=== PATIENT | female | born 1935 | race Caucasian/White ===

== ENCOUNTER 2016-04-12 12:19 | Observation (INO) | payer OTHER, MEDICARE ==
--- NOTE | 2016-04-12 12:19 | EDPHY ---
H & P Time Seen by Provider: 04/12/16 12:18 HPI/ROS: CHIEF COMPLAINT: Confusion HISTORY OF PRESENT ILLNESS: Patient arrives by EMS. She was at [employer] when at 11:00 a.m. she had sudden onset of confusion. She felt she did not know where she was and she could not remember where she parked her car. Didn't know why she was at the grocery store. She denies headache. Denies weakness or numbness in extremities. No symptoms of visual loss or difficulty with speech. She feels better now but is not completely back to normal. REVIEW OF SYSTEMS: Eye: no change in vision ENT: no sore throat Cardiac: no chest pain or syncope Pulmonary: no cough or SOB Abdomen: no vomiting, diarrhea, abdominal pain Musculoskeletal: no back pain or neck pain Skin: no rash Neuro: no headache Constitutional: no fever : no urinary symptoms, no dysuria or hematuria. A comprehensive 10 point review of systems is otherwise negative aside from elements mentioned in the history of present illness. PAST MEDICAL HISTORY: Includes GERD, hyperlipidemia, history of basal cell skin cancer, hypothyroid, tonsillectomy. Social history: No alcohol or tobacco. General Appearance: Alert and conversant, cooperative. Eyes: No scleral icterus. ENT, Mouth: Normal mucous membranes. Respiratory: Normal respiratory effort, breath sounds equal, lungs are clear to auscultation. Cardiovascular: Regular rate and rhythm. Gastrointestinal: Abdomen is soft and non tender. Neurological: Alert and oriented x3. Normally conversant. Face symmetric, normal movement and sensation in all extremities. Extraocular motion intact. Visual adan intact to confrontation. Good sales consultant insurance strength bilaterally and can lift each leg independently off the bed. She remembers that she went to [employer] and had a cup of coffee and a sweet roll, she remembers she has a Toyota Previa in the color "sea foam" but still cannot remember where she parked it. She knows her age in the fact that it is April and it is 2017 and today is . Skin: Warm and dry, no rashes. Musculoskeletal: No peripheral edema and no joint swelling. No meningeal signs, neck not stiff. Psychiatric: Not agitated. Emergency Department course/MDM: On arrival she has a history of confusion which seems to be resolving and I do not think she meets criteria acutely for a stroke alert. In addition her symptoms are improving rapidly. Plan for labs to include Chem 7 and troponin, EKG and noncontrast head CT with angiography. 1355: Patient re-examined. She still is not feel back to normal. She has fluent speech. Case is discussed with Dr. Rojas from Neurology who recommends no acute intervention including the no Activase, admission for further observation and probable MRI imaging Discussed with Dr. Nguyen 1430, send urine culture, no antibiotics without any urinary symptoms. We agreed it would be unusual for a urinary tract infection to cause sudden onset of confusion even in this demographic group. Possible TIA, medication side effect, global amnesia. Constitutional: Initial Vital Signs Temperature (C) 36.5 C 04/12/16 12:29 Heart Rate 62 04/12/16 12:29 Respiratory Rate 16 04/12/16 12:29 Blood Pressure 141/64 H 04/12/16 12:29 O2 Sat (%) 97 04/12/16 12:29 O2 Delivery Mode Room Air Allergies/Adverse Reactions: erythromycin base [Erythromycin Base] Allergy (Verified 04/12/16 12:35) flourocene Allergy (Uncoded 04/12/16 12:35) Home Medications: Medication Instructions Recorded Cholecalciferol Vit D3 [Vitamin D3 5,000 units PO HS 06/03/13 (OTC)] Cyanocobalamin [Vitamin B12 (*)] 100 mcg PO DAILY 06/03/13 Estradiol 0.5 mg PO HS 06/03/13 Levothyroxine [Synthroid 50 mcg 50 mcg PO DAILY 06/03/13 (*)] Magnesium Oxide 250 mg PO HS 06/03/13 Progesterone,Micronized 100 mg PO HS 06/03/13 [Prometrium] Simvastatin [Zocor 10 mg] 10 mg PO DAILY@2300 06/03/13 Vit A/Vit C/Vit E/Zinc/Copper 1 each PO BID 06/03/13 [Preservision Areds Softgel] valACYclovir [Valtrex (*)] 500 mg PO HS 06/03/13 Cetirizine [ZyrTEC 10 mg (*)] 10 mg PO DAILY 04/12/16 Ranitidine HCl [Zantac] 150 mg PO HS 04/12/16 diphenhydrAMINE [Benadryl 50 MG 50 mg PO HS 04/12/16 (*)] Medical Decision Making - Diagnostics EKG Interpretation: 12-lead EKG interpreted by me; official reading is in trace master. My interpretation is sinus rhythm at rate 65 with left atrial abnormality otherwise normal. Imaging: Negative CT head and angiography including neck vessels per Isever at 2:00 p.m.. Differential Diagnosis: Differential for confusion includes but not limited to intracranial bleed, ischemic stroke, seizure, metabolic or hypoglycemia, transient global amnesia Consult/Admit Bed Type: [place] [id number] - Data Points Laboratory Results: Laboratory Results 04/12/16 12:35 04/12/16 12:35 04/12/16 04/12/16 04/12/16 13:35 12:35 12:35 WBC RBC Hgb POC Hgb Hct POC Hct MCV MCH MCHC RDW Plt Count MPV Neut % (Auto) Lymph % (Auto) [place] % (Auto) Eos % (Auto) Baso % (Auto) Nucleat RBC Rel Count Absolute Neuts (auto) Absolute Lymphs (auto) Absolute Monos (auto) Absolute Eos (auto) Absolute Basos (auto) Absolute Nucleated RBC Immature Gran % Immature Gran # PT 12.5 SEC SEC (12.0-15.0) INR 0.94 (0.83-1.16) POC Sodium Sodium 142 mEq/L mEq/L (134-144) POC Potassium Potassium 4.5 mEq/L mEq/L (3.5-5.2) POC Chloride Chloride 109 mEq/L mEq/L (97-110) Carbon Dioxide 24 mEq/l mEq/l (22-31) Anion Gap 9 mEq/L mEq/L (8-16) POC BUN BUN 26 mg/dL H mg/dL (7-23) Creatinine 1.0 mg/dL mg/dL (0.6-1.0) POC Creatinine Estimated GFR 53 Glucose 98 mg/dL mg/dL (70-100) POC Glucose Calcium 9.3 mg/dL mg/dL (8.5-10.4) Troponin I < 0.012 ng/mL ng/mL (0-0.034) Urine Color PALE YELLOW Urine Appearance CLEAR Urine pH 6.0 (5.0-7.5) Ur Specific [place] 1.005 (1.002-1.030) Urine Protein NEGATIVE (NEGATIVE) Urine Ketones NEGATIVE (NEGATIVE) Urine Blood NEGATIVE (NEGATIVE) Urine Nitrate NEGATIVE (NEGATIVE) Urine Bilirubin NEGATIVE (NEGATIVE) Urine Urobilinogen NEGATIVE EU EU (0.2-1.0) Ur Leukocyte Esterase TRACE H (NEGATIVE) Urine RBC 1-3 /hpf /hpf (0-3) Urine WBC 5-10 /hpf H /hpf (0-3) Ur Epithelial Cells NONE SEEN /lpf /lpf (NONE-1+) Urine Bacteria 1+ /hpf H /hpf (NONE SEEN) Urine Glucose NEGATIVE (NEGATIVE) 04/12/16 04/12/16 12:35 12:34 WBC 6.86 10^3/uL 10^3/uL (3.80-9.50) RBC 3.94 10^6/uL L 10^6/uL (4.18-5.33) Hgb 13.2 g/dL g/dL (12.6-16.3) POC Hgb 13.6 gm/dL gm/dL (12.3-15.9) Hct 39.0 % % (38.0-47.0) POC Hct 40 % % (35.5-47.5) MCV 99.0 fL fL (81.5-99.8) MCH 33.5 pg pg (27.9-34.1) MCHC 33.8 g/dL g/dL (32.4-36.7) RDW 13.2 % % (11.5-15.2) Plt Count 275 10^3/uL 10^3/uL (150-400) MPV 9.4 fL fL (8.7-11.7) Neut % (Auto) 58.9 % % (39.3-74.2) Lymph % (Auto) 23.2 % % (15.0-45.0) [place] % (Auto) 12.2 % % (4.5-13.0) Eos % (Auto) 4.7 % % (0.6-7.6) Baso % (Auto) 0.7 % % (0.3-1.7) Nucleat RBC Rel Count 0.0 % % (0.0-0.2) Absolute Neuts (auto) 4.04 10^3/uL 10^3/uL (1.70-6.50) Absolute Lymphs (auto) 1.59 10^3/uL 10^3/uL (1.00-3.00) Absolute Monos (auto) 0.84 10^3/uL H 10^3/uL (0.30-0.80) Absolute Eos (auto) 0.32 10^3/uL 10^3/uL (0.03-0.40) Absolute Basos (auto) 0.05 10^3/uL 10^3/uL (0.02-0.10) Absolute Nucleated RBC 0.00 10^3/uL 10^3/uL (0-0.01) Immature Gran % 0.3 % % (0.0-1.1) Immature Gran # 0.02 10^3/uL 10^3/uL (0.00-0.10) PT INR POC Sodium 144 mEq/L mEq/L (134-144) Sodium POC Potassium 4.1 mEq/L mEq/L (3.3-5.0) Potassium POC Chloride 107 mEq/L mEq/L (96-108) Chloride Carbon Dioxide Anion Gap POC BUN 27 mg/dL H mg/dL (7-23) BUN Creatinine POC Creatinine 1.1 mg/dL mg/dL (0.6-1.2) Estimated GFR Glucose POC Glucose 105 mg/dL H mg/dL (70-100) Calcium Troponin I Urine Color Urine Appearance Urine pH Ur Specific [place] Urine Protein Urine Ketones Urine Blood Urine Nitrate Urine Bilirubin Urine Urobilinogen Ur Leukocyte Esterase Urine RBC Urine WBC Ur Epithelial Cells Urine Bacteria Urine Glucose Medications Given: Discontinued Medications Aspirin (Aspirin) 325 mg PO ONCE ONE Stop: 04/12/16 14:56 Last Admin: 04/12/16 15:08 Dose: 325 mg Nitrofurantoin Macrocrystals (Macrobid) 100 mg PO EDNOW ONE PRN Reason: Protocol Stop: 04/12/16 14:18 Last Admin: 04/12/16 14:28 Dose: 100 mg Point of Care Test Results: 04/12/16 12:34 POC Sodium 144 POC Potassium 4.1 POC Chloride 107 POC BUN 27 H POC Creatinine 1.1 POC Glucose 105 H Departure - Dep[facility]ure [facility] [place] [facility] Clinical Impression: Confusion Condition: Good
--- NOTE | 2016-04-12 12:42 | CPEKG ---
Heart Rate: 65 RR Interval: 923 P-R Interval: 152 QRSD Interval: 86 QT Interval: 420 QTC Interval: 437 P [place]: 79 QRS [place]: 78 T Wave [place]: 66 EKG Severity - BORDERLINE ECG - EKG Impression: SINUS RHYTHM EKG Impression: PROBABLE LEFT ATRIAL ABNORMALITY Electronically Signed By: Julian Borrero 12-Apr-2016 12:43:12
[2016-04-12 12:47] LABS: % IMMATURE GRANULYOCYTES 0.3 % (0.0-1.1); ABSOLUTE IMMATURE GRANULOCYTES 0.02 10^3/uL (0.00-0.10); ADD DIFF? NO; ADD MORPH? NO; ADD SCAN? NO; ATYPICAL LYMPHOCYTE FLAG 30 (0-99); FRAGMENT RBC FLAG 0 (0-99); HEMOGLOBIN 13.2 g/dL (12.6-16.3); LEFT SHIFT FLG 0 (0-99); LIPEMIA HEMOLYSIS FLAG 90 (0-99); MEAN CELL HEMOGLOBIN 33.5 pg (27.9-34.1); MEAN CELL HEMOGLOBIN CONCENTR. 33.8 g/dL (32.4-36.7); MEAN PLATELET VOLUME 9.4 fL (8.7-11.7); PLATELET CLUMPS FLAG 0 (0-99); PLATELET COUNT 275 10^3/uL (150-400); RED BLOOD CELL COUNT 3.94 10^6/uL (4.18-5.33); RED CELL DISTRIBUTION WIDTH 13.2 % (11.5-15.2)
[2016-04-12 12:55] LABS: INR 0.94 (0.83-1.16); PROTIME(PATIENT) 12.5 SEC (12.0-15.0)
[2016-04-12] MEDS ORDERED: IOPAMIDOL (ISOVUE-370) 150 ML BTL IV ONE (13:03)
[2016-04-12 13:07] LABS: ANION GAP 9 mEq/L (8-16); CALCIUM 9.3 mg/dL (8.5-10.4); CARBON DIOXIDE 24 mEq/l (22-31); CHLORIDE 109 mEq/L (97-110); GLOMERULAR FILTRATION RATE 53; GLUCOSE 98 mg/dL (70-100); POTASSIUM 4.5 mEq/L (3.5-5.2); SODIUM 142 mEq/L (134-144)
[2016-04-12 13:18] LABS: TROPONIN I < 0.012 ng/mL (0-0.034)
[2016-04-12 13:57] LABS: COLOR PALE YELLOW; LEUKOCYTE ESTERASE,URINE TRACE (NEGATIVE); NITRITE,URINE NEGATIVE (NEGATIVE)
[2016-04-12 14:01] LABS: BACTERIA 1+ /hpf (NONE SEEN)
[2016-04-12] MEDS ORDERED: NITROFURANTOIN MACROBID 100 MG CAP PO ONE ×2 (14:17→14:24)
[2016-04-12] MEDS ORDERED: ASPIRIN 325 MG TAB PO ONE (14:55)
[2016-04-12] MEDS ORDERED: NS 1,000 ML IV SCH (15:00)
--- NOTE | 2016-04-12 15:04 | PDEACUHP ---
History and Physical - Chief Complaint confusion - History of Present Illness 81 yo female with h/o macular degeneration, hypothyroidism and hyperlipidemia presented to ED via EMS after becoming acutely confused at [employer]. She recalls the events from yesterday and recent meetings and events at home. This morning, she went to her Pilates class, but felt rather tired so she went to [employer] for some coffee and a sweet bun. While there, she suddenly felt the layout of the store was confusing, she couldn't remember where she parked her car, and felt generally confused. EMS was called and she was brought to the ED. She denies speech difficulty, headaches, vision changes, CP, SOB or heart palpitations. No focal weakness. No h/o TIA or CVA. No h/o A fib. Denies dysuria, frequency, urgency, no fevers. She was recently started on Zyrtec and Benadryl for a pruritic rash on her b/l LE's. She takes 50 mg of Benadryl at bedtime for the past 5-7 days and 10 mg Zyrtec in the morning. She has been putting Aquafor on her legs, without much improvement. In the ED, a CT brain and CTA head and neck were negative for acute stroke. She is admitted for further evaluation of her acute confusional state. History Information - Allergies/Home Medication List Allergies/Adverse Reactions: erythromycin base [Erythromycin Base] Allergy (Verified 04/12/16 12:35) flourocene Allergy (Uncoded 04/12/16 12:35) Home Medications: Cholecalciferol Vit D3 [Vitamin D3 (OTC)] 5,000 units PO HS 06/03/13 [Last Taken 06/02/13] Cyanocobalamin [Vitamin B12 (*)] 100 mcg PO DAILY 06/03/13 [Last Taken 06/03/13] Estradiol 0.5 mg PO HS 06/03/13 [Last Taken 06/02/13 23:00] Levothyroxine [Synthroid 50 mcg (*)] 50 mcg PO DAILY 06/03/13 [Last Taken 08:00] Magnesium Oxide 250 mg PO HS 06/03/13 [Last Taken 06/02/13 23:00] Progesterone,Micronized [Prometrium] 100 mg PO HS 06/03/13 [Last Taken 06/02/13 23:00] Simvastatin [Zocor 10 mg] 10 mg PO DAILY@2300 06/03/13 [Last Taken 06/02/13 23: 00] Vit A/Vit C/Vit E/Zinc/Copper [Preservision Areds Softgel] 1 each PO BID [Last Taken 06/02/13] valACYclovir [Valtrex (*)] 500 mg PO HS 06/03/13 [Last Taken 06/02/13 23:00] Cetirizine [ZyrTEC 10 mg (*)] 10 mg PO DAILY 04/12/16 [Last Taken 04/11/16] Ranitidine HCl [Zantac] 150 mg PO HS 04/12/16 [Last Taken 04/11/16] diphenhydrAMINE [Benadryl 50 MG (*)] 50 mg PO HS 04/12/16 [Last Taken 04/11/16] I have personally reviewed and updated: family history, medical history, social history, surgical history - Past Medical History hyperlipidemia Additional medical history: hypothyroid, h/o esophageal stricture, h/o hsv, macular degeneration - Surgical History Additional surgical history: EGD for esophageal dilation ?2013 - Family History Positive for: stroke Additional family history: parents both of heart disease, sister had a stroke - Social History Smoking Status: Never smoked Alcohol Use: Other (one drink each day, [place] when it's cold, [place] when it's warm. Retired attorney law clerk. Lives alone) Drug Use: None Additional social history: She is very active, going to exercise classes regularly Review of Systems ROS: 10pt was reviewed & negative except for what was stated in HPI & below Physical Exam Temp Pulse Resp BP Pulse Ox 36.5 C 58 L 17 119/57 L 96 04/12/16 12:29 04/12/16 13:56 04/12/16 13:56 04/12/16 13:56 04/12/16 13:56 Constitutional: no apparent distress Eyes: PERRL Ears, Nose, Mouth, Throat: moist mucous membranes Cardiovascular: regular rate and rhythym, no murmur, rub, or gallop Respiratory: no respiratory distress, clear to auscultation Gastrointestinal: normoactive bowel sounds, soft, non-tender abdomen Skin: warm Musculoskeletal: full muscle strength Neurologic: AAOx3, CN II-XII Intact (negative pronator drift. she is a bit slow to find her words) Lab Data & Imaging Review 04/12/16 12:35 04/12/16 12:35 WBC 6.86 10^3/uL (3.80-9.50) 04/12/16 12:35 RBC 3.94 10^6/uL (4.18-5.33) L 04/12/16 12:35 Hgb 13.2 g/dL (12.6-16.3) 04/12/16 12:35 POC Hgb 13.6 gm/dL (12.3-15.9) 04/12/16 12:34 Hct 39.0 % (38.0-47.0) 04/12/16 12:35 POC Hct 40 % (35.5-47.5) 04/12/16 12:34 MCV 99.0 fL (81.5-99.8) 04/12/16 12:35 MCH 33.5 pg (27.9-34.1) 04/12/16 12:35 MCHC 33.8 g/dL (32.4-36.7) 04/12/16 12:35 RDW 13.2 % (11.5-15.2) 04/12/16 12:35 Plt Count 275 10^3/uL (150-400) 04/12/16 12:35 MPV 9.4 fL (8.7-11.7) 04/12/16 12:35 Neut % (Auto) 58.9 % (39.3-74.2) 04/12/16 12:35 Lymph % (Auto) 23.2 % (15.0-45.0) 04/12/16 12:35 [place] % (Auto) 12.2 % (4.5-13.0) 04/12/16 12:35 Eos % (Auto) 4.7 % (0.6-7.6) 04/12/16 12:35 Baso % (Auto) 0.7 % (0.3-1.7) 04/12/16 12:35 Nucleat RBC Rel Count 0.0 % (0.0-0.2) 04/12/16 12:35 Absolute Neuts (auto) 4.04 10^3/uL (1.70-6.50) 04/12/16 12:35 Absolute Lymphs (auto) 1.59 10^3/uL (1.00-3.00) 04/12/16 12:35 Absolute Monos (auto) 0.84 10^3/uL (0.30-0.80) H 04/12/16 12:35 Absolute Eos (auto) 0.32 10^3/uL (0.03-0.40) 04/12/16 12:35 Absolute Basos (auto) 0.05 10^3/uL (0.02-0.10) 04/12/16 12:35 Absolute Nucleated RBC 0.00 10^3/uL (0-0.01) 04/12/16 12:35 Immature Gran % 0.3 % (0.0-1.1) 04/12/16 12:35 Immature Gran # 0.02 10^3/uL (0.00-0.10) 04/12/16 12:35 PT 12.5 SEC (12.0-15.0) 04/12/16 12:35 INR 0.94 (0.83-1.16) 04/12/16 12:35 POC Sodium 144 mEq/L (134-144) 04/12/16 12:34 Sodium 142 mEq/L (134-144) 04/12/16 12:35 POC Potassium 4.1 mEq/L (3.3-5.0) 04/12/16 12:34 Potassium 4.5 mEq/L (3.5-5.2) 04/12/16 12:35 POC Chloride 107 mEq/L (96-108) 04/12/16 12:34 Chloride 109 mEq/L (97-110) 04/12/16 12:35 Carbon Dioxide 24 mEq/l (22-31) 04/12/16 12:35 Anion Gap 9 mEq/L (8-16) 04/12/16 12:35 POC BUN 27 mg/dL (7-23) H 04/12/16 12:34 BUN 26 mg/dL (7-23) H 04/12/16 12:35 Creatinine 1.0 mg/dL (0.6-1.0) 04/12/16 12:35 POC Creatinine 1.1 mg/dL (0.6-1.2) 04/12/16 12:34 Estimated GFR 53 04/12/16 12:35 Glucose 98 mg/dL (70-100) 04/12/16 12:35 POC Glucose 105 mg/dL (70-100) H 04/12/16 12:34 Calcium 9.3 mg/dL (8.5-10.4) 04/12/16 12:35 Troponin I < 0.012 ng/mL (0-0.034) 04/12/16 12:35 Urine Color PALE YELLOW 04/12/16 13:35 Urine Appearance CLEAR 04/12/16 13:35 Urine pH 6.0 (5.0-7.5) 04/12/16 13:35 Ur Specific [place] 1.005 (1.002-1.030) 04/12/16 13:35 Urine Protein NEGATIVE (NEGATIVE) 04/12/16 13:35 Urine Ketones NEGATIVE (NEGATIVE) 04/12/16 13:35 Urine Blood NEGATIVE (NEGATIVE) 04/12/16 13:35 Urine Nitrate NEGATIVE (NEGATIVE) 04/12/16 13:35 Urine Bilirubin NEGATIVE (NEGATIVE) 04/12/16 13:35 Urine Urobilinogen NEGATIVE EU (0.2-1.0) 04/12/16 13:35 Ur Leukocyte Esterase TRACE (NEGATIVE) H 04/12/16 13:35 Urine RBC 1-3 /hpf (0-3) 04/12/16 13:35 Urine WBC 5-10 /hpf (0-3) H 04/12/16 13:35 Ur Epithelial Cells NONE SEEN /lpf (NONE-1+) 04/12/16 13:35 Urine Bacteria 1+ /hpf (NONE SEEN) H 04/12/16 13:35 Urine Glucose NEGATIVE (NEGATIVE) 04/12/16 13:35 Assessment & Plan Assessment: Confusion (Acute) - Differential includes TIA vs transient global amnesia vs medication side effect (it's possible the benadryl and zyrtec are playing a role in her fatigue and confusion). CT neg. Stroke risk factors include hyperlipidemia. BP is normal. -monitor on tele -MRI ordered -Start ASA -check lipid panel -neurology consult -hold anti-histamines -PT/OT evals LE dermatitis - Possibly allergic. Will hold the anti-histamines due to above issue and give topical steroid cream. Possible UTI - UA is not terribly impressive and she has no urinary symptoms. Cx sent in ED and pt given Macrobid. Will defer atbx for now, await Cx. Macular degeneration - cont outpt meds. Pt has an appt with her eye doctor tomorrow afternoon and wants to be sure this gets canceled if necessary. Hypothyroidism - check TSH given confusion. If normal, cont outpt meds. Hyperlipidemia - med rec pending. Check lipid panel in am. Full code Dispo - obs/EACU
[2016-04-12] MEDS ORDERED: PROGESTERONE,MICR 100 MG CAP PO SCH (21:00)
[2016-04-12] MEDS ORDERED: ESTRADIOL 0.5 MG TAB PO SCH (21:00)
[2016-04-12] MEDS ORDERED: valACYclovir 500 MG TAB PO SCH (21:00)
[2016-04-12] MEDS ORDERED: FAMOTIDINE 20 MG TAB PO SCH (21:00)
[2016-04-12] MEDS: TRIAMCINOLONE 0.1% 15 GM CRTUBE TP SCH ×2 (21:51)
[2016-04-12] MEDS ORDERED: PRAVASTATIN SODIUM 20 MG TAB PO SCH (23:00)
[2016-04-13 05:36] VITALS: RESP 16
[2016-04-13 05:43] LABS: ANION GAP 8 mEq/L (8-16); CALCIUM 9.1 mg/dL (8.5-10.4); CARBON DIOXIDE 22 mEq/l (22-31); CHLORIDE 115 mEq/L (97-110); CHOLESTEROL 162 mg/dL (140-220); CHOLESTEROL/HDL RATIO 2.89 RATIO (1.00-4.44); CREATININE 0.9 mg/dL (0.6-1.0); GLOMERULAR FILTRATION RATE 60; GLUCOSE 85 mg/dL (70-100); HIGH DENSITY LIPOPROTEIN 56 mg/dL (40-85); LDL/HDL RATIO 1.59 RATIO (1.00-3.22); LOW DENSITY LIPOPROTEIN 89 mg/dL (80-100); NON-HIGH DENSITY LIPOPROTEIN 106 mg/dL (90-129); POTASSIUM 4.3 mEq/L (3.5-5.2); SODIUM 145 mEq/L (134-144); TRIGLYCERIDE 87 mg/dL (35-135); VERY LOW DENSITY LIPOPROTEINS 17 mg/dL (8-25)
[2016-04-13] MEDS ORDERED: LEVOTHYROXINE 50 MCG TAB PO SCH (06:00)
[2016-04-13] MEDS ORDERED: ASPIRIN 81 MG CHEWABLE TAB PO SCH (09:00)
[2016-04-13] MEDS: TRIAMCINOLONE 0.1% 15 GM CRTUBE TP SCH (09:30)
[2016-04-13 15:25] VITALS: BP 126/57; PULSE 69; TEMP 98.8; O2SAT 96
--- NOTE | 2016-04-13 15:42 | GCON ---
INPATIENT CONSULTATION NOTE. DATE OF CONSULTATION: 04/13/2016 CHIEF COMPLAINT: Transient global amnesia. HISTORY OF PRESENT ILLNESS: Dr. Macarena Miranda of the hospitalist service consulted Neurology for oanh luation of the patient's mental status changes. Results of the evaluation are placed in the EMR for her review. This is an 81-year-old female with a prior history of macular degeneration, hypothyroidism, and hype rlipidemia, who presented to the emergency room on April 12, 2016, with transient confusion. She rep orts she was in her normal state of good health in the morning when she went to [employer]. She st ates that is the last thing she can remember until 2 hours later, when she became cognizant and coul d remember things in the hospital admission. Bystanders in the emergency room notes report that she was acting confused and could not maintain short-term memories. There were no focal neurologic def icits noted. She was admitted, where a CT angiogram of the head and neck and a brain MRI were all g enerally unremarkable. CT angiogram did show some bilateral carotid fibromuscular dysplasia. The p atient states since yesterday late afternoon, her memory has been fine and she has full memory from yesterday afternoon until this morning. She completely feels normal. She cannot remember 2 hours f rom yesterday, however. She states this has never happened before, and she denies any prior history of stroke or seizure. ALLERGIES: No known drug allergies. PAST MEDICAL HISTORY: Hyperlipidemia, hypothyroidism, history of esophageal stricture, history of a ge-related macular degeneration, EGD for esophageal dilation in 2013. FAMILY HISTORY: Stroke. SOCIAL HISTORY: Never smoked. REVIEW OF SYSTEMS: A 10-point review of systems is negative except for what was placed in HPI. PHYSICAL EXAM: VITAL SIGNS: Blood pressure is 107/54, heart rate 57, respirations 16, satting 94% on room air, temperature 36.4 degrees Celsius. GENERAL: No acute distress. EYES: Funduscopic exa m could not visualize optic discs. LUNGS: Clear to auscultation bilaterally. No rhonchi or rales. HEART: Regular rate and rhythm. No murmurs. No carotid bruits auscultated. NEUROLOGIC: Mental status: Alert and oriented to person, place, and date. Memory, attention, language, and fund of k nowledge all appear intact. Cranial nerves: Pupils equal, round, and react to light. Visual field s are full to confrontation. Extraocular muscles intact. Bilateral face intact to sensation and mo tor movement. Hearing intact to conversation. Uvula rises symmetrically. Tongue protrudes midline . Traps 5/5 strength. Motor: Normal tone and strength in all 4 extremities. Sensory: All 4 extr emities intact to light touch. No neglect. Reflexes: Bilateral brachioradialis and patellae 2/4. Coordination: Bilateral [id number], [id number], and rapid alternating movements are normal. Gait deferred. LABS: On April 12, 2016, CBC is normal. CMP with a sodium of 145. TSH within normal limits. LDL 8 9. UA shows trace leukocyte esterase. IMAGING: On April 12, 2016, a brain MRI without contrast shows no acute findings. I personally visu alized this study. On April 12, 2016, a CT angiogram of the head and neck shows bilateral carotid artery fibromuscular d ysplasia, but otherwise it is unremarkable. ASSESSMENT: 1. Transient global amnesia: Given the patient had 2 hours of inability to form short-term memorie s with no focal neurologic deficits and has had complete recovered with a normal brain MRI makes me suspect this is the correct diagnosis. The fact that she cannot remember 2 hours yesterday strongly supports this diagnosis. I do not suspect a transient ischemic attack or alternative diagnosis at this time. However, I do think it is reasonable that she takes lifelong aspirin 81 mg daily for gen eral stroke prevention given her hyperlipidemia and her known fibromuscular dysplasia. 2. 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 Therefore, I have recommended that the patient begin aspirin 81 mg da cipriano. RECOMMENDATIONS: 1. Begin aspirin 81 mg daily to reduce stroke risk given known fibromuscular dysplasia in bilateral carotid arteries. 2. Follow up in the neurology clinic in 2-4 weeks, which I have given her my contact information. No further neurologic workup needed at this time. Transient global amnesia is a self-limited diagno sis. Patient has my contact information to call if any new symptoms arise. /[id number]/MODL
--- NOTE | 2016-04-13 16:43 | GDS ---
DISCHARGE DIAGNOSIS: Transient global amnesia. PHYSICAL EXAM: GENERAL: The patient is alert. VITAL SIGNS: Afebrile at 37.1, pulse is 69, respir atory rate is 16, blood pressure is 126/57, she is saturating 96% on room air. I have seen and eval uated the patient on the day of discharge. HOSPITAL COURSE: Ms. Robb is an 81-year-old female, who suffered a transient global amnesia even t and was admitted to the hospital secondary to complaints of memory loss. She was evaluated by Dr. Bob Jefferson. MRI of the brain as well as CT angio have all been within normal limits. Her sym ptoms have completely resolved. She has returned to her baseline. She has been initiated on 81 mg of aspirin and has noted fibromuscular dysplasia in her carotid arteries. She will follow up in the outpatient setting with Neurology. There are no other pending studies at the time of this disposit ion. DISCHARGE MEDICATIONS: Please refer to EMR form. New medications include aspirin 81 mg daily. I h ave not adjusted any of the patient's previously prescribed home medications. She is comfortable wi th this disposition, plan and will follow up with her primary care physician as well as Dr. Rojas. /[id number]/MODL
== END 2016-04-13 15:56 | disposition home or self-care (01) ==
LOC: EDUNIT# → F3N 17:55
PROVIDERS: ADMIT Hospitalist; ATTEND Internal Medicine
DX: G45.4 Transient global amnesia (principal); L25.9 Unspecified contact dermatitis, unspecified cause; K21.9 Gastro-esophageal reflux disease without esophagitis; E78.5 Hyperlipidemia, unspecified; E03.9 Hypothyroidism, unspecified; H35.30 Unspecified macular degeneration
CPT/HCPCS: 70450; 70496; 70498; 70551; 71020; 93005; 99285; G0378; Q9967; 82947-QW

== ENCOUNTER → 2016-05-30 | Outpatient (CLI) | payer OTHER, MEDICARE ==
--- NOTE | 2016-05-30 11:38 | CPEEG ---
[f rep st] ELECTROENCEPHALOGRAM DATE OF STUDY: 05/30/2016 INTERPRETATION: Normal EEG during wakefulness and sleep. There is no potentially epileptogenic abn ormalities present during the recording. REPORT: This EEG contains 10 Hz alpha to the posterior head regions. There was no abnormal activat ion at rest, during photic stimulation, or hyperventilation. The patient became drowsy and fell asl eep during the study. There was no abnormal activation during drowsiness, sleep, or during times of arousal. /[id number]/MODL
== END ==
LOC: FCPNEURO 09:24
PROVIDERS: ATTEND Psychiatry & Neurology Neurology
DX: R29.818 Other symptoms and signs involving the nervous system (principal)

== ENCOUNTER → 2016-11-01 | Outpatient (CLI) | payer OTHER, MEDICARE | LOC: BMCIMAGING 14:28 | PROVIDERS: ATTEND Internal Medicine | DX: R60.0 Localized edema (principal) ==

== ENCOUNTER 2017-01-29 10:02 | Emergency (ER) | payer OTHER, MEDICARE ==
--- NOTE | 2017-01-29 10:05 | EDPHY ---
HPI/HX/ROS/PE/MDM Narrative: CHIEF COMPLAINT: Dizziness HPI: The patient is an 81 y/o female arriving via EMS after experiencing a 2 minute episode of severe dizziness at 09:00, 1 hour ago. In April 2016, she was admitted to this hospital for confusion and diagnosed with global transient amnesia; she had a normal head CT during this visit. On 01/22/17, 7 days ago, she saw her neurologist at [facility] after experiencing a right-sided tremor and right-sided chest pain. She was sent to [facility] and had a normal brain MRI, head CT, head CTA, and chest CTA studies preformed. She was able to stand after the dizziness passed, but is still having a strange feeling on the right side of her head. She is not currently dizzy. Denies prior episodes of dizziness , headache, changes in vision, numbness, paresthesias or other pertinent symptoms. Prior medical records reviewed including history and physical with Dr. Nguyen on 04/12/16. REVIEW OF SYSTEMS: Aside from elements discussed in the HPI, a comprehensive 10-point review of systems was reviewed and is negative. PMH: Basal cell carcinoma, hyperlipidemia, transient global amnesia, hypothyroid , fibromuscular dysplasia SOCIAL HISTORY: Lives in [place], retired trial attorney, PHYSICAL EXAM: General: Patient is alert, in no acute distress. ENT: Eyes are normal to inspection. ENT inspection normal. Neck: Normal inspection. Full range of motion. Respiratory: No respiratory distress. Breath sounds normal bilaterally. Cardiovascular: Regular rate and rhythm. Strong peripheral pulses. Normal cap refill. Abdomen: The abdomen is nontender to palpation. There are no peritoneal signs. There are normal bowel sounds. Back: Normal to inspection. No tenderness to palpation. Skin: Normal color. No rash. Warm and dry. Extremities: Normal appearance. Full range of motion. Neuro: Oriented x3. Normal [id number]. Normal cranial nerves. No pronator drift. No nystagmus. Normal motor function. Normal sensory function. Normal gait. Portions of this note were transcribed by an ED scribe. I personally performed the history, physical exam, and medical decision making; and confirm the accuracy of the information in the transcribed note. ED Course: 1010: Patient will not have imaging studies preformed as she just had multiple normal studies preformed last week. 1013: EKG was ordered and interpreted by myself. Please see [email or web address] system for official reading. 1406: Consulted with Dr. Boo, neurologist, regarding this patient. He does not recommend further imaging studies. He also recommends that she takes a full strength Aspirin daily, and follow up with a glassine machine tender. Reassessed patient and discussed outpatient follow up with Dr. Benítez, glassine machine tender. Return precautions provided; patient is comfortable with this plan. MDM: This patient presents with an episode of transient dizziness that has since resolved, which sounds most suspicious for peripheral vertigo. Her presentation is complicated somwhat by a recent ED visit at [facility] for chest pain and neuro complaints one week ago. At that time she had a full workup, including CTA head and neck and chest, as well as an MRI of the brain, all of which are normal. As such, new neurologic symptoms are concerning but made less likely to be severe given recent negative imaging. The patient declines additional imaging at this time. She is currently asymptomatic and has shown no signs of arrhythmia or ACS. Given resolution of symptoms, I think the worst case is possible TIA, but patient has essentially already completed this workup and is already on a daily aspirin. I offered her option of admission to the hospital for further workup and observation but she prefers to go home. We discussed the fact the etiology of her symptoms remains unclear and we discussed strict return precautions. - Data Points Imaging: I viewed and interpreted images myself Laboratory Results: Laboratory Results 01/29/17 10:03 01/29/17 10:03 01/29/17 01/29/17 10:03 10:03 WBC 4.88 10^3/uL 10^3/uL (3.80-9.50) RBC 4.26 10^6/uL 10^6/uL (4.18-5.33) Hgb 14.2 g/dL g/dL (12.6-16.3) Hct 41.8 % % (38.0-47.0) MCV 98.1 fL fL (81.5-99.8) MCH 33.3 pg pg (27.9-34.1) MCHC 34.0 g/dL g/dL (32.4-36.7) RDW 13.9 % % (11.5-15.2) Plt Count 237 10^3/uL 10^3/uL (150-400) MPV 9.3 fL fL (8.7-11.7) Neut % (Auto) 49.4 % % (39.3-74.2) Lymph % (Auto) 31.6 % % (15.0-45.0) [place] % (Auto) 12.3 % % (4.5-13.0) Eos % (Auto) 5.1 % % (0.6-7.6) Baso % (Auto) 1.4 % % (0.3-1.7) Nucleat RBC Rel Count 0.0 % % (0.0-0.2) Absolute Neuts (auto) 2.41 10^3/uL 10^3/uL (1.70-6.50) Absolute Lymphs (auto) 1.54 10^3/uL 10^3/uL (1.00-3.00) Absolute Monos (auto) 0.60 10^3/uL 10^3/uL (0.30-0.80) Absolute Eos (auto) 0.25 10^3/uL 10^3/uL (0.03-0.40) Absolute Basos (auto) 0.07 10^3/uL 10^3/uL (0.02-0.10) Absolute Nucleated RBC 0.00 10^3/uL 10^3/uL (0-0.01) Immature Gran % 0.2 % % (0.0-1.1) Immature Gran # 0.01 10^3/uL 10^3/uL (0.00-0.10) Sodium 142 mEq/L mEq/L (134-144) Potassium 4.6 mEq/L mEq/L (3.5-5.2) Chloride 108 mEq/L mEq/L (97-110) Carbon Dioxide 26 mEq/l mEq/l (22-31) Anion Gap 8 mEq/L mEq/L (8-16) BUN 14 mg/dL mg/dL (7-23) Creatinine 1.1 mg/dL H mg/dL (0.6-1.0) Estimated GFR 48 Glucose 82 mg/dL mg/dL (70-100) Calcium 9.5 mg/dL mg/dL (8.5-10.4) Troponin I < 0.012 ng/mL ng/mL (0.000-0.034) Medications Given: Discontinued Medications Sodium Chloride (Ns) 1,000 mls @ 0 mls/hr IV EDNOW ONE; Wide Open PRN Reason: Protocol Stop: 01/29/17 10:17 Last Admin: 01/29/17 10:42 Dose: 1,000 mls General Time Seen by Provider: 01/29/17 10:02 Initial Vital Signs: Initial Vital Signs Heart Rate 73 01/29/17 10:45 Respiratory Rate 16 01/29/17 10:45 Blood Pressure 107/71 01/29/17 10:45 O2 Sat (%) 96 01/29/17 10:45 O2 Delivery Mode Nasal Cannula Allergies/Adverse Reactions: erythromycin base [Erythromycin Base] Allergy (Verified 04/12/16 12:35) flourocene Allergy (Uncoded 04/12/16 12:35) Home Medications: Medication Instructions Recorded Cholecalciferol Vit D3 [Vitamin D3 5,000 units PO HS 06/03/13 (*)] Cyanocobalamin [Vitamin B12 (*)] 100 mcg PO DAILY 06/03/13 Estradiol 0.5 mg PO HS 06/03/13 Levothyroxine [Synthroid 50 mcg 50 mcg PO DAILY 06/03/13 (*)] Magnesium Oxide 250 mg PO HS 06/03/13 Progesterone,Micronized 100 mg PO HS 06/03/13 [Prometrium] Simvastatin [Zocor 10 mg] 10 mg PO DAILY@2300 06/03/13 Vit A/Vit C/Vit E/Zinc/Copper 1 each PO BID 06/03/13 [Preservision Areds Softgel] valACYclovir [Valtrex (*)] 500 mg PO HS 06/03/13 Cetirizine [ZyrTEC 10 mg (*)] 10 mg PO DAILY 04/12/16 Ranitidine HCl [Zantac] 150 mg PO HS 04/12/16 diphenhydrAMINE [Benadryl 50 MG 50 mg PO HS 04/12/16 (*)] Aspirin [Aspirin 81mg (*)] 81 mg PO DAILY #0 tab.chew 04/13/16 Departure - Departure Disposition: Home, Routine, Self-Care Clinical Impression: Dizziness Condition: Good Instructions: Dizziness (ED) Additional Instructions: Take a full strength Aspirin daily until you follow up with a glassine machine tender. This is 324mg oral Aspirin. Follow up with a glassine machine tender in the next week, you have been referred to Dr. Benítez. Return to the emergency department immediately for recurrence of headache, nausea, vomiting, numbness, weakness, neck pain, fever or other concerns. Referrals: Cesar Benítez MD [Medical Doctor] - As per Instructions Report Scribed for: Clifton Grajeda Report Scribed by: Liseth Horn Date of Report: 01/29/17 Time of Report: 10:14
[2017-01-29] MEDS ORDERED: NS 1,000 ML IV ONE (10:16)
--- NOTE | 2017-01-29 10:20 | CPEKG ---
Heart Rate: 63 RR Interval: 952 P-R Interval: 148 QRSD Interval: 92 QT Interval: 428 QTC Interval: 439 P Jackson: 64 QRS Jackson: 83 T Wave Jackson: 68 EKG Severity - OTHERWISE NORMAL ECG - EKG Impression: SINUS RHYTHM EKG Impression: ATRIAL PREMATURE COMPLEX EKG Impression: BORDERLINE RIGHT AXIS DEVIATION Electronically Signed By: Josue Tovar 29-Jan-2017 19:48:46
[2017-01-29 10:31] LABS: % IMMATURE GRANULYOCYTES 0.2 % (0.0-1.1); ABSOLUTE IMMATURE GRANULOCYTES 0.01 10^3/uL (0.00-0.10); ADD DIFF? NO; ADD MORPH? NO; ADD SCAN? NO; ATYPICAL LYMPHOCYTE FLAG 30 (0-99); FRAGMENT RBC FLAG 0 (0-99); HEMATOCRIT 41.8 % (38.0-47.0); HEMOGLOBIN 14.2 g/dL (12.6-16.3); LEFT SHIFT FLG 0 (0-99); LIPEMIA HEMOLYSIS FLAG 90 (0-99); MEAN CELL HEMOGLOBIN 33.3 pg (27.9-34.1); MEAN CELL VOLUME 98.1 fL (81.5-99.8); MEAN PLATELET VOLUME 9.3 fL (8.7-11.7); PLATELET CLUMPS FLAG 0 (0-99); PLATELET COUNT 237 10^3/uL (150-400); RED BLOOD CELL COUNT 4.26 10^6/uL (4.18-5.33); RED CELL DISTRIBUTION WIDTH 13.9 % (11.5-15.2)
[2017-01-29 10:46] LABS: ANION GAP 8 mEq/L (8-16); CALCIUM 9.5 mg/dL (8.5-10.4); CARBON DIOXIDE 26 mEq/l (22-31); CHLORIDE 108 mEq/L (97-110); CREATININE 1.1 mg/dL (0.6-1.0); GLOMERULAR FILTRATION RATE 48; GLUCOSE 82 mg/dL (70-100); POTASSIUM 4.6 mEq/L (3.5-5.2); SODIUM 142 mEq/L (134-144)
[2017-01-29 10:47] VITALS: RESP 16
[2017-01-29 10:57] LABS: TROPONIN I < 0.012 ng/mL (0.000-0.034)
[2017-01-29 14:42] VITALS: BP 112/64; PULSE 80; TEMP 98.1; O2SAT 98
== END 2017-01-29 14:41 | disposition home or self-care (01) ==
LOC: EDUNIT#
DX: R42 Dizziness and giddiness (principal); Z79.82 Long term (current) use of aspirin; Z85.828 Personal history of other malignant neoplasm of skin

== ENCOUNTER → 2017-06-17 | Outpatient (CLI) | payer OTHER, MEDICARE | LOC: BMCIMAGING 13:04 | PROVIDERS: ATTEND Internal Medicine | DX: R22.1 Localized swelling, mass and lump, neck (principal) | CPT/HCPCS: 76536-PO ==

== ENCOUNTER → 2017-08-20 | Outpatient (CLI) | payer OTHER, MEDICARE | LOC: BMCIMAGING 13:00 | PROVIDERS: ATTEND Internal Medicine | DX: Z12.31 Encounter for screening mammogram for malignant neoplasm of breast (principal) ==

== ENCOUNTER → 2018-04-01 | Outpatient (CLI) | payer OTHER, MEDICARE | LOC: BMCIMAGING 08:56 | PROVIDERS: ATTEND Internal Medicine | DX: Z13.6 Encounter for screening for cardiovascular disorders (principal); I70.0 Atherosclerosis of aorta; Z82.49 Family history of ischemic heart disease and other diseases of the circulatory system ==